=== PATIENT | female | born 1950 | race Caucasian/White ===

== ENCOUNTER 2019-08-01 10:25 | Emergency (ER) | payer OTHER, BC ==
[2019-08-01] MEDS ORDERED: METOCLOPRAMIDE HCL INJECTION 10 MG/2 ML VIAL IVPB ONE (10:40)
[2019-08-01] MEDS ORDERED: ACETAMINOPHEN 1000 MG/100 ML VIAL (NON FORMULARY) IVPB ONE (10:40)
[2019-08-01] MEDS ORDERED: SODIUM CHLORIDE 0.9% 1000 ML INFUS.BAG IV ONE (10:40)
[2019-08-01 10:50] VITALS: BP 162/92; PULSE 76; TEMP 98; BMI 24.8
--- NOTE | 2019-08-01 11:33 | PDOC ---
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 No fever no cough no sputum no chest pain no significant shortness of breath cough is improving steadily over the last few days. Symptoms are mild to moderate persistent constant better at night slightly worse during the day. Past History - Past Medical History Allergies/Adverse Reactions: Allergies Allergy/AdvReac Type Severity Reaction Status Date / Time No Known Allergies Allergy Unverified 08/01/19 10:27 Home Medications: Ambulatory Orders Beclomethasone Dipropionate [Qvar Redihaler] 10.6 gm IH BID 08/01/19 Bifidobacterium Infantis [Align] 4 mg PO DAILY 08/01/19 Bupropion HCl [Wellbutrin Sr] 150 mg PO DAILY 08/01/19 Chlordiazepoxide/Clidinium Br [Librax Capsule] 1 each PO DAILY 08/01/19 Cholecalciferol (Vitamin D3) [Vitamin D3] 2,000 unit PO DAILY 08/01/19 Famotidine [Pepcid] 20 mg PO BID 08/01/19 Pilocarpine HCl [Salagen] 5 mg PO BID 08/01/19 Simvastatin 20 mg PO DAILY 08/01/19 COPD: No GI Disorders: Yes (GERD) Psychiatric Problems: Yes (ANXIETY) - Psycho Social/Smoking Cessation Hx Smoking History: Never smoked Information on smoking cessation initiated: No Hx Alcohol Use: No Drug/Substance Use Hx: No Review of Systems - Review of Systems Comments:: 08/01/19 11:31 ROS: A complete review of 10 out of 10 review of systems is taken and is negative apart from what is previously mentioned below and in the HPI. *Physical Exam - Vital Signs Last Vital Signs Temp Pulse Resp BP Pulse Ox 98 F 76 20 162/92 100 08/01/19 10:26 08/01/19 10:26 08/01/19 10:26 08/01/19 10:26 08/01/19 10:26 - Physical Exam 08/01/19 11:31 Vitals: Triage Vital signs reviewed General Appearance: No acute distress, well nourished well developed, Head: Atraumatic, Eyes: Pupils equal reactive round, extraocular movement intact Ears: TM's normal bilaterally; Nose: Nares patent bilaterally; no nasal congestion Throat: Posterior oropharynx without erythema, mucous membranes moist, Neck: Supple; no Nucal rigidity Chest Wall: Nontender Cardiac: Regular rate and rhythym, no murmurs, no rubs, no gallops, Lungs: Clear to auscultation bilateral, good air movement bilaterally, Abdomen: Soft, non distended, normal bowel sounds, non tender to palpation Extremities: Full range of motion to all extremities, no cyanosis, clubbing, or edema Skin: Warm and dry, no rashes or lesions, no rash, no petechiae Psych: Normal mood, normal affect ED Treatment Course - RADIOLOGY Radiology Studies Ordered: Category Date Time Status CHEST PA & LAT [RAD] Stat Radiology 08/01/19 10:45 Completed - Medications Given in the ED: ED Medications Discontinued Medications Generic Name Dose Route Start Last Admin Trade Name Freq PRN Reason Stop Dose Admin Acetaminophen 1,000 mg 08/01/19 10:40 08/01/19 10:47 Ofirmev Injection - IVPB 08/01/19 10:41 Not Given ONCE ONE Diphenhydramine HCl 25 mg 08/01/19 10:40 08/01/19 10:46 Benadryl Injection - IVPB 08/01/19 10:41 Not Given ONCE ONE Metoclopramide HCl 10 mg 08/01/19 10:40 08/01/19 10:47 Reglan Injection - IVPB 08/01/19 10:41 Not Given ONCE ONE Sodium Chloride 500 ml 08/01/19 10:40 08/01/19 10:47 Normal Saline - IV 08/01/19 10:41 Not Given ONCE ONE Medical Decision Making - Medical Decision Making 08/01/19 11:32 Well-appearing no apparent distress with dry nonproductive cough improving X-ray demonstrates no acute pathology patient is feeling better does not want to change any medication she will follow-up with your doctor this week Findings, the need for follow-up and strict return instructions discussed with patient. Discharge - Discharge Information Problems reviewed: Yes Clinical Impression/Diagnosis: Cough Condition: Stable Disposition: HOME - Admission No - Follow up/Referral Referrals: Enzo Godwin MD [Primary Care Provider] - - Patient Discharge Instructions Patient Printed Discharge Instructions: Cough Additional Instructions: Continue taking inhaler as prescribed. Follow-up with the doctor this week. Return to ED for any fever severe symptoms or for any concerns. - Post Discharge Activity
== END 2019-08-01 11:55 | disposition home or self-care (01) ==
LOC: FER 10:25
DX: R05 Cough (principal); K21.9 Gastro-esophageal reflux disease without esophagitis; F41.9 Anxiety disorder, unspecified; R09.82 Postnasal drip
CPT/HCPCS: 71046-TC-FY; 99281-25